=== PATIENT | male | born 1980 | race Caucasian/White ===

== ENCOUNTER 2020-08-06 18:15 | Emergency (ER) | payer MEDICAID, SELFPAY ==
[2020-08-06 18:34] VITALS: BP 130/79; PULSE 50; RESP 16; TEMP 37.6; O2SAT 97; BMI 29.1
--- NOTE | 2020-08-06 18:56 | ED.URI ---
HPI - URI/Sore Throat General Chief Complaint: Upper Respiratory Symptoms Stated Complaint: FLU LIKE Time Seen by Provider: 08/06/20 18:55 Source: patient Mode of arrival: ambulatory Limitations: no limitations History of Present Illness HPI Narrative: 39-year-old male presents for COVID-19 testing because of upper respiratory symptoms. He has had positive COVID-19 contacts at work. He describes sore throat, congestion, cough, and malaise. MD elicited complaint: cough, sore throat and nasal congestion Onset (ago): day(s) (3) Consistency: constant Severity: moderate Description of mucous: clear and watery Able to tolerate fluids by mouth: Yes Relieving factors: nothing Context: sick contacts Associated symptoms: chills, headache, nasal congestion, sore throat, cough and nausea Treatments prior to arrival: none Related Data Allergies Allergy/AdvReac Type Severity Reaction Status Date / Time No Known Allergies Allergy Unknown Unverified 05/17/20 15:40 [No Known Allergies*] Review of Systems Review of Systems: Constitutional: Subjective Fever, positive Chills, positive fatigue, positive Malaise ENT/Mouth: positive sore throat, positive runny nose Eyes: No Discharge Cardiovascular: No Chest Pain, No SOB Respiratory: No Cough, No Sputum, No Wheezing, No Smoke Exposure, No Dyspnea Gastrointestinal: No Nausea, No Vomiting, No Diarrhea Genitourinary: no irregular bleeding, No Dysuria, No Urinary Frequency, No Hematuria, No Urinary Incontinence, No Urgency, No Flank Pain, Musculoskeletal: positive Myalgia Skin: No rash Neuro: No Headache Yes all other systems are reviewed and are negative [facility] Past Medical History Attestation statement: The following information was validated with the patient. Medical History No known health problems Social History Social History Advance Directives: No Advance Directives Information Provided: No Physical Exam Vital Signs: Vital Signs: Last Vital Signs Temp 98.5 F 08/06/20 19:07 Pulse 60 08/06/20 19:07 Resp 16 08/06/20 19:07 BP 135/78 08/06/20 19:07 Pulse Ox 98 08/06/20 19:07 Body Mass Index 29.1 Appearance: Alert. Oriented X3. mild distress. Eyes: Pupils equal, round and reactive to light. ENT: Pharynx normal. Neck: Normal inspection. Neck supple. CVS: Normal heart rate and rhythm. Pulses normal. Respiratory: No respiratory distress. Breath sounds normal. Abdomen: Soft and nontender. Skin: Skin warm and dry. Normal skin color. Normal skin turgor. Extremities: No lower extremity edema. Neuro: No motor deficit. No sensory deficit. Course Course Course Narrative: 39-year-old male with upper respiratory symptoms presents for COVID-19 testing. He has had multiple COVID-19 contacts at work. We will test, he does have some wheeze we will be uteri all inhaler. Patient does understand that he must maintain social isolation for state and Federal guidelines. Patient verbalized understanding of and agrees to plan of care discharge home. MDM - URI/Sore Throat Differential Diagnosis Differential diagnosis: Likely upper respiratory infection, viral infection and influenza Medical Records Attestation: I reviewed the patient's medical records. Discharge Plan Discharge Clinical Impression: Upper respiratory infection, Viral infection, COVID-19 Patient Disposition: Home, Self-Care Instructions: Upper Respiratory Infection (ED), Viral Syndrome (ED), COVID-19 (Coronavirus Disease 2019) (ED) Additional Instructions: you were evaluated for upper respiratory symptoms. This is suspected to be COVID-19 as you have had COVID-19 positive contacts. Your COVID-19 test is pending we will call you with the results in approximately 4 days. Please use albuterol inhaler as directed. Take Tylenol and Motrin [id number] and drink plenty of fluids. You must maintain social isolation per state and Federal guidelines for COVID-19. It is your responsibility to maintain these guidelines. If shortness of breath gets worse or you have any worsening symptoms please return to the emergency department or primary care provider. Thank you for choosing this emergency department for evaluation. Please follow-up with primary care physician as needed. Return to the emergency department for any new, concerning, or worsening symptoms. Stand Alone Forms: Work/School Release Interventions: ED Discharge Assessment Last Done: 08/06/20 19:49 Discharge Date/Time: 08/06/20 19:51
[2020-08-06 19:07] VITALS: BP 135/78; PULSE 60; RESP 16; TEMP 36.9; O2SAT 98
[2020-08-06] MEDS: Albuterol Sulfate 90 MCG 8 GM INHALER 2 PUFF INHALE (19:46)
== END 2020-08-06 19:51 | disposition home or self-care (01) ==
PROVIDERS: Nurse Practitioner Family; Emergency Provider Internal Medicine
DX: J06.9 Acute upper respiratory infection, unspecified (principal); Z20.828 Contact with and (suspected) exposure to other viral communicable diseases; B34.9 Viral infection, unspecified
CPT/HCPCS: 99283; 99284; U0003

== ENCOUNTER 2021-03-25 16:14 | Emergency (ER) | payer MEDICAID, SELFPAY ==
--- NOTE | ~2021-03-25 | CT_ITS ---
EXAMINATION: CT HEAD WITHOUT CONTRAST CLINICAL INFORMATION: Severe headache for months. COMPARISON: None TECHNIQUE: Contiguous axial imaging was performed from the skull base to vertex without intravenous administration of contrast. This CT examination was performed using dose optimization techniques as appropriate, variously including the following: *Automated exposure control *Adjustment of mA and/or kV according to patient size (this includes techniques or standardized protocols for targeted exams where dose is matched to indication/reason for exam; i.e. extremities or head) *Use of iterative reconstruction technique DLP: 667 mGy-cm FINDINGS: No evidence of acute intracranial hemorrhage or extra-axial fluid collection. No evidence of mass lesion, mass effect or midline shift. No acute territorial infarction. Ventricles are symmetric in configuration and normal in size. The basal cisterns are patent. Limited views of the paranasal sinuses are unremarkable. Mastoid air cells are well aerated and middle ear cavities are clear. Limited views of the orbits are unremarkable. CT/CT head/brain wo con IMPRESSION: No acute intracranial pathology. No intracranial mass lesions are seen by noncontrast CT.
[2021-03-25 16:48] VITALS: BP 123/71; PULSE 70; RESP 18; TEMP 36.6; O2SAT 98; BMI 32.1
--- NOTE | 2021-03-25 18:36 | ED.HA ---
HPI - Headache General Chief Complaint: Headache Stated Complaint: MIGRAINE Time Seen by Provider: 03/25/21 17:25 Source: patient Mode of arrival: ambulatory Limitations: no limitations History of Present Illness HPI Narrative: 40-year-old male previously healthy here with complaint of intermittent headaches for the last few months which occur with nausea, vomiting and photophobia. Patient had episode today and took Aleve and now his symptoms are much improved. He tells me he does not have a primary care doctor but is working on established when 1. He denies any current nausea, vomiting, dizziness, vision changes, weakness. No head injury or trauma. Related Data Previous Rx's Medication Instructions Recorded sumatriptan succinate [Imitrex] See Rx Instructions .ROUTE 03/25/21 .COMPLEX #10 tab Allergies Allergy/AdvReac Type Severity Reaction Status Date / Time No Known Allergies Allergy Unknown Unverified 05/17/20 15:40 [No Known Allergies*] Review of Systems Review of Systems: Yes all other systems are reviewed and are negative Constitutional: Constitutional: Reports no additional constitutional complaints, Denies body ache(s), Denies chills, Denies fever(s), Reports headache(s) and Denies weakness Eyes: Eyes: Reports no additional eye complaints, Denies change in vision and Reports photophobia ENT: Reports system reviewed and no additional complaints, except as documented, Denies dizziness, Reports headache(s), Denies nasal congestion, Denies nasal discharge and Denies neck pain Cardiovascular: Cardiovascular: Reports no additional cardiovascular complaints, Denies chest pain, Denies leg edema and Denies dyspnea Respiratory: Respiratory: Reports no additional respiratory complaints, Denies cough and Denies dyspnea Gastrointestinal: Gastrointestinal: Reports no additional gastrointestinal complaints, Denies abdominal pain, Denies diarrhea, Reports nausea and Reports vomiting Genitourinary: Genitourinary: Denies urinary incontinence Musculoskeletal: Musculoskeletal: Reports no additional musculoskeletal complaints, Denies back pain, Denies arthralgias, Denies joint swelling, Denies neck pain, Denies numbness and Denies tingling Integumentary/Breasts: Skin/Breast: Reports system reviewed and no additional complaints, except as docu and Denies rash Neurologic: Reports system reviewed and no additional complaints, except as documented, Denies Abnormal speech present, Denies dizziness, Reports headache(s), Denies numbness, Denies tingling and Denies weakness [facility] Past Medical History Attestation statement: The following information was validated with the patient. Source: old records reviewed and nursing notes reviewed Medical History No known health problems Social History Social History Advance Directives: No Advance Directives Information Provided: Yes Physical Exam Vital Signs: Vital Signs: Last Vital Signs Temp 97.8 F 03/25/21 16:48 Pulse 70 03/25/21 16:48 Resp 18 03/25/21 16:48 BP 123/71 03/25/21 16:48 Pulse Ox 98 03/25/21 16:48 Body Mass Index 32.1 Const: General: cooperative, healthy appearing, comfortable and no acute distress Orientation/consciousness: patient oriented x3 Limitations: no limitations HENMT: Head: Yes normal to inspection Ears: hearing grossly normal bilaterally General nose exam: Normal external nose present Face and sinus: Yes normal facial exam Mouth: Normal oral and palatal mucosa present Throat: Yes posterior oropharynx normal Eyes: General: appearance normal, both eyes and all related structures Pupils: Equal, round and reactive pupils present Direct Ophthalmoscopy: photophobia Neck: Neck: Yes normal visual inspection Chest: Chest palpation & inspection: normal inspection of the chest Resp: Effort & Inspection: normal respiratory effort Auscultation: clear to auscultation bilaterally Cardio: Rate: regular rate Rhythm: regular rhythm Peripheral pulses: Peripheral pulses 2+ throughout GI: Inspection: Yes normal to inspection Palpation (GI): Soft to palpation and nontender Auscultation: normal bowel sounds Back/Spine/Pelvis: Thoracic/Lumbar Spine: thoracic and lumbar spine normal to inspection Skin: General skin exam: no rashes or lesions noted Neuro: General: patient oriented x3, no focal motor deficits and normal sensation to monofilament Cranial nerves: Yes CN's II-XII intact bilaterally, Yes Equal, round and reactive pupils present, Yes Bilaterally intact EOM present, Yes Nystagmus not present, Yes Normal facial strength present and Yes Midline tongue present Cognition (Neuro): normal cognition Speech: No Abnormal speech present Gait exam (Neuro): Normal gait present Motor exam (neuro): 5/5 motor strength present throughout Sensory Exam: Normal double simultaneous stimulation for sensation Extrem: General: Yes normal to inspection Course Course Course Narrative: 40-year-old male here with complaints of intermittent headaches for several months with associated photophobia and vomiting. Patient had a similar episode today however on arrival is feeling improved after taking a dose of Aleve prior to arrival. Normal neuro exam. Due to persistent headache for several months will check CT head to rule out underlying space-occupying lesion. Labs were ordered from triage will follow. -sign out to night team pending (Rebecca MARROQUIN) MDM - Headache Medical Records Attestation: I reviewed the patient's medical records. Lab Data Attestation: I reviewed the patient's lab results. Discharge Plan Discharge Clinical Impression: Migraine Patient Disposition: Home, Self-Care Instructions: Migraine Headache (ED) Additional Instructions: Your CT scan looks normal Your blood work looks normal You need to follow-up with the primary care doctor. We have attached a list a you may establish one. Avoid migraine triggers (drink plenty of water, avoid stress, get plenty of rest) Prescriptions: New sumatriptan succinate [Imitrex] 25 mg tablet See Rx Instructions .ROUTE .COMPLEX Qty: 10 RF: 0 Referrals: Physician,None [Primary Care Provider] - 2 days Stand Alone Forms: Work/School Release
== END 2021-03-25 20:04 | disposition home or self-care (01) ==
PROVIDERS: Emergency Provider Emergency Medicine
DX: G43.909 Migraine, unspecified, not intractable, without status migrainosus (principal)
CPT/HCPCS: 70450; 99282; 99284

== ENCOUNTER 2022-04-17 13:01 | Emergency (ER) | payer MEDICAID, SELFPAY ==
--- NOTE | ~2022-04-17 | XR_ITS ---
EXAMINATION: XR SHOULDER, RIGHT CLINICAL INFORMATION: Pain COMPARISON: None TECHNIQUE: AP external rotation, Grashey, scapular Y, and axillary views of the right shoulder. FINDINGS: There is no acute fracture or dislocation. There is no bony erosion. The glenohumeral articulation is within normal limits. No significant degenerative change is seen. XR/XR shoulder RT min 2V IMPRESSION: No acute bony finding.
[2022-04-17 13:17] VITALS: BP 122/75; PULSE 69; RESP 16; TEMP 36.6; O2SAT 95; BMI 28.5
--- NOTE | 2022-04-17 16:19 | ED_ITS ---
HPI - Extremity Problem General Chief complaint: Extremity Injury, Upper Stated complaint: R shoulder pain Time Seen by Provider: 04/17/22 16:15 Source: patient Mode of arrival: ambulatory Limitations: no limitations History of Present Illness HPI Narrative: [age] year old male presents to ED right shoulder pain worse on movement heavy lifting. Patient states for his job there is constant for the motion of right shoulder such as heavy lifting, proaning, and yad work. Patient denies any blunt trauma to right shoulder but has pain when he moves it. Patient denies any swelling of right upper extremity, chest pain, tingling, redness, blue black discoloration, or shortness of breath. Related Data Previous Rx's Medication Instructions Recorded sumatriptan succinate 25 mg tablet See Rx Instructions PO .COMPLEX 03/25/21 (Imitrex) #10 tabs cyclobenzaprine 10 mg tablet 10 mg PO TID PRN muscle spasm 7 04/17/22 days #21 tabs naproxen 500 mg tablet 500 mg PO BID PRN pain 10 days #20 04/17/22 tabs prednisone 20 mg tablet 40 mg PO DAILY 5 days #10 tabs 04/17/22 Allergies Allergy/AdvReac Type Severity Reaction Status Date / Time No Known Allergies Allergy Unknown Verified 04/17/22 13:17 [No Known Allergies*] Review of Systems Review of Systems: RIght shoulder pain Yes all other systems are reviewed and are negative [facility] Past Medical History Medical History No known health problems Social History Social History Advance Directives: No Advance Directives Information Provided: No Physical Exam Vital Signs: Vital Signs: Last Vital Signs Temp 97.8 F 04/17/22 13:17 Pulse 69 04/17/22 13:17 Resp 16 04/17/22 13:17 BP 122/75 04/17/22 13:17 Pulse Ox 95 04/17/22 13:17 O2 Del Method 04/17/22 13:17 BMI result Body Mass Index 28.5 Const: General: cooperative, healthy appearing, comfortable, no acute di stress, well developed, alert, awake and Physically active Orientation/consciousness: patient oriented x3 HEENT: Head: Yes normal to inspection, Yes No palpable skull fracture present, Yes normocephalic, Yes atraumatic and No abrasion Eyes: General: appearance normal, both eyes and all related structures Neck: Neck: Yes normal visual inspection, Yes full ROM, Yes no lymphadenopathy, Yes no meningeal signs, Yes trachea midline, Yes supple, No anterior neck swelling and No tender Chest: Chest palpation & inspection: normal inspection of the chest and normal palpation of entire chest wall Resp: Effort & Inspection: normal respiratory effort and able to speak in complete sentences Auscultation: clear to auscultation bilaterally Cardio: Jugular venous distension: no JVD Heart sounds: S1 normal heart sound present and S2 normal heart sound present GI: Inspection: Yes normal to inspection Palpation (GI): Soft to palpation, not firm, nontender, no guarding and not rigid : General: No CVA tenderness and Yes no CVA tenderness Back/Spine/Pelvis: Back: no CVA tenderness, No CVA tenderness and No back tenderness Skin: General skin exam: no rashes or lesions noted and elasticity normal Neuro: General: patient oriented x3, gait normal, tone normal, no meningeal signs and CN's II-XI intact bilaterally Cranial nerves: Yes CN's II-XII intact bilaterally Extrem: General: Yes normal to inspection and Yes full ROM Shoulder/upper arm images: 1. tenderness on palpation. negative for swelling, ecchymosis, erythema, coldness, bluish/discoloration, or stiffness. Vascular, motor, and neuro exam intact. Psych: Appearance: grossly normal, well kempt and not disheveled Course Course Course Narrative: Shoulder xray Reevaluation(s) Reevaluation #1: Shoulder xray is normal and negative for fracture. Patient informed he will need PCP referral for MRI to evaluate for possible shoulder muscle tear Time: 16:33 MDM - Extremity (Nontraumatic) [facility] Narrative Medical decision making narrative: Shoulder sprain Discharge Plan Discharge Clinical Impression: Shoulder sprain Patient Disposition: Home, Self-Care Instructions: Shoulder Sprain (ED) Additional Instructions: Your shoulder x-ray came back normal. You will need follow-up with your primary care provider for referral to get an MRI to rule out any shoulder muscle tear. Return to the ED immediately for swelling of right upper extremity, redness, bluish black discoloration, hotness, coolness, chest pain, shortness of breath, fever, chills, or any other concerning symptoms. Prescriptions: New naproxen 500 mg tablet 500 mg PO BID PRN (Reason: pain) 10 Days Qty: 20 0RF prednisone 20 mg tablet 40 mg PO DAILY 5 Days Qty: 10 0RF cyclobenzaprine 10 mg tablet 10 mg PO TID PRN (Reason: muscle spasm) 7 Days Qty: 21 0RF Rx Instructions: side effect is drowsiness. Do not take at work or while driving. No Action sumatriptan succinate [Imitrex] 25 mg tablet See Rx Instructions .ROUTE .COMPLEX Qty: 10 0RF Rx Instructions: take 1 tab at onset of headache; if no relief may repeat 1 tab after at least 2 hrs; max = 4 tabs/24 hr Stand Alone Forms: Work/School Release Interventions: ED Discharge Assessment Last Done: 04/17/22 16:57 Discharge Date/Time: 04/17/22 16:59 Print Language: Par[place]ayan
== END 2022-04-17 16:59 | disposition home or self-care (01) ==
PROVIDERS: Emergency Provider Emergency Medicine Emergency Medical Services
DX: S43.401A Unspecified sprain of right shoulder joint, initial encounter (principal); X58.XXXA Exposure to other specified factors, initial encounter; Y93.9 Activity, unspecified; Y92.9 Unspecified place or not applicable; Y99.9 Unspecified external cause status
CPT/HCPCS: 73030; 99282; 99283

== ENCOUNTER 2022-06-11 13:25 | Emergency (ER) | payer MEDICAID, SELFPAY ==
--- NOTE | ~2022-06-11 | XR_ITS ---
EXAMINATION: XR fifth finger, LEFT CLINICAL INFORMATION: Slammed fifth digit and 12 till date COMPARISON: None TECHNIQUE: Three views of the left fifth finger. FINDINGS: No dislocation is evident. There is a 1 mm calcific density seen volar aspect of the fifth proximal phalanx which may represent an acute or chronic volar plate injury base of the fifth middle phalanx. There is some soft tissue swelling about both the proximal and distal interphalangeal joints. There appears to be some degenerative erosive change about the head of the fifth middle phalanx. There is a slight step off about the base of the fifth distal phalanx ulnar aspect which may represent an acute or chronic nondisplaced fracture versus degenerative spurring. XR/XR finger LT min 2V IMPRESSION: Probable degenerative changes involving the head of the fifth middle phalanx with some adjacent soft tissue swelling. Acute versus chronic volar plate fracture base of the fifth middle phalanx.
[2022-06-11 14:37] VITALS: BP 143/95; PULSE 80; RESP 16; TEMP 36.6; O2SAT 98; BMI 29.8
== END 2022-06-11 19:34 | disposition left against medical advice (07) ==
PROVIDERS: Emergency Provider Emergency Medicine
DX: M79.642 Pain in left hand (principal)
CPT/HCPCS: 73140; 99281; 99283

== ENCOUNTER 2022-11-25 13:43 | Emergency (ER) | payer MEDICAID, SELFPAY ==
[2022-11-25 14:05] VITALS: BP 124/80; PULSE 83; RESP 18; TEMP 36.8; O2SAT 97; BMI 29.8
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
[2022-11-25 14:43] LABS: IDNOW Serial# 08D9AD1C; Strep A Nucleic Acid Negative (Negative)
[2022-11-25 15:08] LABS: Influenza A PCR NEGATIVE (Negative); Influenza B PCR NEGATIVE (Negative); Resp Syncy Virus RNA Qual PCR NEGATIVE (Negative); SARS COV2 PCR INHOUSE NEGATIVE (Negative)
[2022-11-28 17:49] LABS: C. Trachomatis RNA TMA, Throat NOT DETECTED; N. gonorrhoeae RNA TMA, Throat NOT DETECTED
== END 2022-11-25 14:37 | disposition home or self-care (01) ==
PROVIDERS: Physician Assistant Medical; Emergency Provider Emergency Medicine
DX: J02.0 Streptococcal pharyngitis (principal); Z20.822 Contact with and (suspected) exposure to COVID-19; Z20.828 Contact with and (suspected) exposure to other viral communicable diseases
CPT/HCPCS: 0241U; 87491; 87591; 87651; 99282; 99283

== ENCOUNTER 2023-01-29 11:41 | Emergency (ER) | payer MEDICAID, SELFPAY ==
[2023-01-29 12:48] VITALS: BP 124/95; PULSE 67; RESP 18; TEMP 37; O2SAT 98; BMI 31.2
--- NOTE | 2023-01-29 12:49 | ED_ITS ---
HPI - General Adult General Chief complaint: Headache Stated complaint: High BP, dizzy Time Seen by Provider: 01/29/23 15:03 History of Present Illness HPI narrative: Patient complains of runny nose body aches headache fatigue, mild runny nose The headache is mild, it is not accompanied by dizziness fainting or confusion, there is no stiff neck there is no sore throat there is no chest pain cough or shortness of breath there is no abdominal pain nausea or vomiting, no dysuria no rash Related Data Previous Rx's Medication Instructions Recorded sumatriptan succinate 25 mg tablet See Rx Instructions PO .COMPLEX 03/25/21 (Imitrex) #10 tabs cyclobenzaprine 10 mg tablet 10 mg PO TID PRN muscle spasm 7 04/17/22 days #21 tabs naproxen 500 mg tablet 500 mg PO BID PRN pain 10 days #20 04/17/22 tabs prednisone 20 mg tablet 40 mg PO DAILY 5 days #10 tabs 04/17/22 amoxicillin 875 mg-potassium 1 tab PO BID 7 days #14 tabs 11/25/22 clavulanate 125 mg tablet Allergies Allergy/AdvReac Type Severity Reaction Status Date / Time No Known Allergies Allergy Unknown Verified 04/17/22 13:17 [No Known Allergies*] [facility] Past Medical History Source: nursing notes reviewed Medical History No known health problems Social History Social History Smoked in Last 30 Days: No Use of substances other than those prescribed or required for medical reasons: No Advance Directives: No Physical Exam ED Vital Signs: Vital Signs - 24 hr 01/29/23 12:48 01/29/23 15:28 Temperature 98.6 F Pulse Rate 67 Respiratory Rate 18 20 Blood Pressure 124/95 H 128/84 Pulse Oximetry 98 Oxygen Delivery Method Room Air BMI result Body Mass Index 31.2 General appearance is no acute distress Head is normocephalic atraumatic The eyes pupils equal round reactive to light extraocular motions intact no redness or discharge The pharynx no redness swelling or exudate The sinuses no tenderness to the sinuses Chest clear to auscultation bilateral full symmetric equal breath sounds Heart no murmur Abdomen soft nontender Skin no rash Extremities range of motion x4 Course Course Course Narrative: This is a [id number]-male, with a history of hypertension, with a complaint of high blood pressure readings since today. Has had headaches, and generalized not feeling well - had nausea/vomiting over the weekend which has since resolved. Had a cookout on and had nausea/vomiting afterwards. Feeling better, requesting work note. No fevers, chills, chest pain, shortness of breath, nausea, vomiting or diarrhea. VSS. BP 120s/90s. Plan: COVID testing ordered COVID and flu tests are negative, patient is well appearing tolerating p.o. no shortness of breath, main problem is mild fatigue and body aches and he has diagnose likely a mild viral illness and discharged ambulating easily Medical Decision Making Lab Data Labs: Lab Results 01/29/23 Range/Units 13:33 Influenza Type A (PCR) NEGATIVE (Negative) Influenza Type B (PCR) NEGATIVE (Negative) RSV RNA Qual (PCR) NEGATIVE (Negative) SARS-CoV-2 RNA (RT-PCR) NEGATIVE (Negative) Discharge Plan Discharge Clinical Impression: Acute viral syndrome Patient Disposition: Home, Self-Care Additional Instructions: COVID and flu test were negative You likely have a viral illness which usually takes around a week to recover Best plan is rest for few days use Tylenol and Motrin as needed Return any time any worse condition or any concerns Prescriptions: No Action sumatriptan succinate [Imitrex] 25 mg tablet See Rx Instructions .ROUTE .COMPLEX Qty: 10 0RF Rx Instructions: take 1 tab at onset of headache; if no relief may repeat 1 tab after at least 2 hrs; max = 4 tabs/24 hr naproxen 500 mg tablet 500 mg PO BID PRN (Reason: pain) 10 Days Qty: 20 0RF prednisone 20 mg tablet 40 mg PO DAILY 5 Days Qty: 10 0RF cyclobenzaprine 10 mg tablet 10 mg PO TID PRN (Reason: muscle spasm) 7 Days Qty: 21 0RF Rx Instructions: side effect is drowsiness. Do not take at work or while driving. amoxicillin-pot clavulanate 875-125 mg tablet 1 tab PO BID 7 Days Qty: 14 0RF Stand Alone Forms: Work/School Release Interventions: ED Discharge Assessment Last Done: 01/29/23 15:57 Discharge Date/Time: 01/29/23 15:58
[2023-01-29 14:19] LABS: Influenza A PCR NEGATIVE (Negative); Influenza B PCR NEGATIVE (Negative); Resp Syncy Virus RNA Qual PCR NEGATIVE (Negative); SARS COV2 PCR INHOUSE NEGATIVE (Negative)
[2023-01-29 15:28] VITALS: BP 128/84; RESP 20
== END 2023-01-29 15:58 | disposition home or self-care (01) ==
PROVIDERS: Physician Assistant Medical; Emergency Provider Emergency Medicine Emergency Medical Services
DX: B34.9 Viral infection, unspecified (principal); Z20.822 Contact with and (suspected) exposure to COVID-19; Z20.828 Contact with and (suspected) exposure to other viral communicable diseases
CPT/HCPCS: 0241U; 99283; 99284

== ENCOUNTER 2023-05-03 12:51 | Emergency (ER) | payer MEDICAID, SELFPAY ==
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
[2023-05-03 12:57] VITALS: BP 149/87; BP 178/86; PULSE 63; PULSE 74; RESP 18; O2SAT 97; O2SAT 98; BMI 33.0
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
[2023-05-03] MEDS: Ketorolac Tromethamine 60 MG/2 ML VIAL IM (15:55)
--- NOTE | 2023-05-03 16:01 | PC.NURSE ---
Patient given hot pack for low back and IM Toradol. Patient hasn't had a back xray requesting low back xray.
== END 2023-05-03 16:51 | disposition home or self-care (01) ==
PROVIDERS: Emergency Provider Emergency Medicine
DX: S06.0XAA Concussion with loss of consciousness status unknown, initial encounter (principal); S13.4XXA Sprain of ligaments of cervical spine, initial encounter; M54.2 Cervicalgia; R51.9 Headache, unspecified; M54.50 Low back pain, unspecified; M25.511 Pain in right shoulder; V23.49XA Other motorcycle driver injured in collision with car, pick-up truck or van in traffic accident, initial encounter; Y93.9 Activity, unspecified; Y92.410 Unspecified street and highway as the place of occurrence of the external cause; Y99.9 Unspecified external cause status; Z79.899 Other long term (current) drug therapy
CPT/HCPCS: 70450; 72100; 72125; 73030; 96372; 99284; J1885